=== PATIENT | female | born 1975 | race Caucasian/White ===

== ENCOUNTER 2017-02-13 03:23 | Emergency (ER) | payer OTHER ==
[~2017-02-13] VITALS: Ht 160 cm; Wt 82.7 kg
[~2017-02-13 03:23] MED LIST: CETI10CA PO; CHOL3000 PO; DOCO100C PO; DOCU-131 PO; FERR324T8 PO; FOLI0.8C PO; IBUP-1222 PO; MAGN400T7 PO; MULT-257 PO; TRAM-47 PO
[2017-02-13] MEDS ORDERED: DEXAMETHASONE 4 MG/ML, 1ML PO ONE (04:00)
[2017-02-13] MEDS ORDERED: BICILLIN-LA 1,200,000 UNITS/2 ML IM ONE (04:00)
[2017-02-13] MEDS ORDERED: DEXAMETHASONE 4 MG/ML, 1ML ONE (04:01)
[2017-02-13 04:38] VITALS: BP 120/71
== END 2017-02-13 04:40 | disposition home or self-care (01) ==
LOC: ED 04:34
DX: J02.0 Streptococcal pharyngitis (principal)
CPT/HCPCS: 96372; 99283; J0561; J1100

== ENCOUNTER 2017-09-12 16:43 | Observation (INO) | payer OTHER ==
[~2017-09-12] VITALS: Ht 160 cm; Wt 90.0 kg
[2017-09-12 17:02] VITALS: BP 129/62
[2017-09-12 17:12] LABS: BASOPHILS # (AUTO) 0.15 x10^3/uL (0-0.1); BASOPHILS % (AUTO) 1 % (0-1); EOSINOPHILS # (AUTO) 0.18 x10^3/uL (0-0.4); EOSINOPHILS % (AUTO) 2 % (1-7); LYMPHOCYTES # (AUTO) 2.39 x10^3/uL (1-3.4); LYMPHOCYTES % (AUTO) 20 % (22-44); MD NO; MEAN CORPUSCULAR HEMOGLOBIN 29.5 pg (27.0-34.8); MEAN CORPUSCULAR HGB CONC 33.3 g/dL (32.4-35.8); MEAN CORPUSCULAR VOLUME 88.8 fL (80-100); MEAN PLATELET VOLUME 8.9 fL (7.4-10.4); MONOCYTES # (AUTO) 0.77 x10^3/uL (0.2-0.8); MONOCYTES % (AUTO) 6 % (2-9); NEUTROPHILS # (AUTO) 8.75 x10^3/uL (1.8-6.8); NEUTROPHILS % (AUTO) 72 % (42-75); PLATELET COUNT 300 x10^3/uL (130-400); RED BLOOD COUNT 3.99 x10^6/uL (3.82-5.3); RED CELL DISTRIBUTION WIDTH 13.5 % (9.6-15.2)
[2017-09-12 17:23] LABS: ALANINE AMINOTRANSFERASE 15 U/L (12-78); ALBUMIN 2.9 g/dL (3.4-5.0); ANION GAP 8 mmol/L (5-15); CALCIUM 9.2 mg/dL (8.5-10.1); CHLORIDE 108 mmol/L (98-107); CREATININE 0.82 mg/dL (0.55-1.02)
[2017-09-12 17:25] LABS: ALKALINE PHOSPHATASE 80 U/L (45-117); BILIRUBIN, DIRECT < 0.1 mg/dL (0.1-0.2); BILIRUBIN,TOTAL 0.1 mg/dL (0.2-1.0); TOTAL PROTEIN 7.3 g/dL (6.4-8.2)
[2017-09-12 17:36] LABS: MICROSCOPIC AUTO
[2017-09-12 17:46] LABS: CREATININE,URINE RANDOM 95.3 mg/dL
[2017-09-12] MEDS ORDERED: BETAMETHASONE 6 MG/ML, 5ML IM ONE ×2 (19:22→19:30)
== END 2017-09-12 19:40 | disposition home or self-care (01) ==
LOC: LDOP 16:43 → LDIP 19:36
PROVIDERS: ADMIT Obstetrics & Gynecology Maternal & Fetal Medicine; ATTEND Obstetrics & Gynecology Maternal & Fetal Medicine
DX: O26.893 Other specified pregnancy related conditions, third trimester (principal); R03.0 Elevated blood-pressure reading, without diagnosis of hypertension; O36.8130 Decreased fetal movements, third trimester, not applicable or unspecified; Z3A.30 30 weeks gestation of pregnancy
CPT/HCPCS: 36415; 59025; 80053; 81001; 81050; 82248; 82570; 84156; 84550; 85025; 96372; G0378; J0702

== ENCOUNTER 2017-09-16 12:13 | Outpatient (CLI) | payer OTHER ==
[~2017-09-16] VITALS: Ht 161.3 cm; Wt 90.0 kg
[2017-09-16 12:17] VITALS: BP 128/81
== END 2017-09-16 16:35 | disposition home or self-care (01) ==
LOC: LDOP 12:13
PROVIDERS: ATTEND Obstetrics & Gynecology Maternal & Fetal Medicine
DX: O13.3 Gestational [pregnancy-induced] hypertension without significant proteinuria, third trimester (principal); O14.93 Unspecified pre-eclampsia, third trimester; Z3A.31 31 weeks gestation of pregnancy
CPT/HCPCS: 59025; 99211; G0463

== ENCOUNTER 2017-09-25 14:15 | Outpatient (CLI) | payer OTHER ==
[~2017-09-25] VITALS: Ht 161.3 cm; Wt 91.8 kg
[2017-09-25 19:06] VITALS: BP 131/75
== END 2017-09-25 16:30 | disposition home or self-care (01) ==
LOC: LDOP 14:15
PROVIDERS: ATTEND Obstetrics & Gynecology Maternal & Fetal Medicine
DX: O36.8130 Decreased fetal movements, third trimester, not applicable or unspecified (principal); O14.93 Unspecified pre-eclampsia, third trimester; Z3A.30 30 weeks gestation of pregnancy
CPT/HCPCS: 59025; 76819; 99211; G0463

== ENCOUNTER → 2017-10-08 | Outpatient (CLI) | payer OTHER ==
[2017-10-08 15:21] LABS: BASOPHILS # (AUTO) 0.05 x10^3/uL (0-0.1); BASOPHILS % (AUTO) 1 % (0-1); EOSINOPHILS # (AUTO) 0.17 x10^3/uL (0-0.4); EOSINOPHILS % (AUTO) 2 % (1-7); LYMPHOCYTES # (AUTO) 3.27 x10^3/uL (1-3.4); LYMPHOCYTES % (AUTO) 28 % (22-44); MD NO; MEAN CORPUSCULAR HEMOGLOBIN 29.8 pg (27.0-34.8); MEAN CORPUSCULAR HGB CONC 33.3 g/dL (32.4-35.8); MEAN CORPUSCULAR VOLUME 89.4 fL (80-100); MEAN PLATELET VOLUME 8.6 fL (7.4-10.4); MONOCYTES # (AUTO) 0.59 x10^3/uL (0.2-0.8); MONOCYTES % (AUTO) 5 % (2-9); NEUTROPHILS # (AUTO) 7.56 x10^3/uL (1.8-6.8); NEUTROPHILS % (AUTO) 65 % (42-75); PLATELET COUNT 306 x10^3/uL (130-400); RED BLOOD COUNT 4.35 x10^6/uL (3.82-5.3); RED CELL DISTRIBUTION WIDTH 14.2 % (9.6-15.2)
[2017-10-08 15:34] LABS: ALBUMIN 2.9 g/dL (3.4-5.0); ANION GAP 6 mmol/L (5-15); CALCIUM 9.2 mg/dL (8.5-10.1); CHLORIDE 107 mmol/L (98-107)
[2017-10-08 15:35] LABS: ALANINE AMINOTRANSFERASE 18 U/L (12-78); CREATININE 0.86 mg/dL (0.55-1.02)
[2017-10-08 15:37] LABS: ALKALINE PHOSPHATASE 110 U/L (45-117); BILIRUBIN,TOTAL 0.2 mg/dL (0.2-1.0); TOTAL PROTEIN 7.5 g/dL (6.4-8.2)
== END | disposition home or self-care (01) ==
LOC: LAB 15:04
PROVIDERS: ATTEND Nurse Practitioner
DX: O13.9 Gestational [pregnancy-induced] hypertension without significant proteinuria, unspecified trimester (principal); O14.90 Unspecified pre-eclampsia, unspecified trimester; R80.9 Proteinuria, unspecified; Z3A.00 Weeks of gestation of pregnancy not specified
CPT/HCPCS: 36415; 80053; 81050; 84156; 84550; 85025

== ENCOUNTER 2019-07-15 10:04 | Emergency (ER) | payer OTHER ==
[~2019-07-15] VITALS: Ht 160 cm; Wt 83.1 kg
[~2019-07-15 10:04] MED LIST changes: -MAGN400T7 PO; +MAGN400T9 PO
[2019-07-15 10:08] VITALS: BP 114/69
[2019-07-15 10:58] LABS: BASOPHILS # (AUTO) 0.05 x10^3/uL (0-0.1); BASOPHILS % (AUTO) 1 % (0-1); EOSINOPHILS % (AUTO) 5 % (1-7); LYMPHOCYTES # (AUTO) 1.52 x10^3/uL (1-3.4); LYMPHOCYTES % (AUTO) 25 % (22-44); MD NO; MEAN CORPUSCULAR HGB CONC 32.7 g/dL (32.4-35.8); MEAN CORPUSCULAR VOLUME 91.8 fL (80-100); MONOCYTES # (AUTO) 0.34 x10^3/uL (0.2-0.8); MONOCYTES % (AUTO) 6 % (2-9); NEUTROPHILS % (AUTO) 64 % (42-75); PLATELET COUNT 274 x10^3/uL (130-400); RED BLOOD COUNT 4.54 x10^6/uL (3.82-5.3); RED CELL DISTRIBUTION WIDTH 12.9 % (9.6-15.2)
[2019-07-15 11:11] LABS: ALANINE AMINOTRANSFERASE 26 U/L (12-78); ANION GAP 6 mmol/L (5-15); CALCIUM 9.3 mg/dL (8.5-10.1); CHLORIDE 106 mmol/L (98-107); CREATININE 1.04 mg/dL (0.55-1.02)
[2019-07-15 11:16] LABS: ALKALINE PHOSPHATASE 49 U/L (45-117); BILIRUBIN,TOTAL 0.5 mg/dL (0.2-1.0); TOTAL PROTEIN 7.8 g/dL (6.4-8.2); TROPONIN I < 0.015 ng/mL (0.000-0.045)
== END 2019-07-15 12:16 ==
LOC: ED 11:11
DX: R07.89 Other chest pain (principal)
CPT/HCPCS: 36415; 71045; 80053; 83690; 84484; 85025; 93005; 99285

== ENCOUNTER 2019-12-26 07:40 | Emergency (ER) | payer OTHER ==
[~2019-12-26] VITALS: Ht 162.6 cm; Wt 79.5 kg
[2019-12-26 07:48] VITALS: BP 114/49
--- NOTE | 2019-12-26 08:16 | NUR ---
THIS IS A 44 YO F W/ C/O SORE THROAT, BOADY ACHES AND CHILLS SINCE LAST NIGHT. PT REPORTS SPOUSE AT HOME ALSO FEELING ILL. NO KNOWN POSITIVE EXPOSURES. PT RESTING ON [facility] W/ CALL LIGHT IN REACH, RESP EVEN AND UNLABORED, NADN.
--- NOTE | 2019-12-26 09:10 | NUR ---
ALL TESTS RESULTED, PT IS UP FOR RECHECK AT THIS TIME.
--- NOTE | 2019-12-26 10:14 | NUR ---
PT LEFT PRIOR TO RECEIVING DC [facility]. SUZANNE.
== END 2019-12-26 10:16 | disposition home or self-care (01) ==
LOC: ED 08:40
DX: U07.1 COVID-19 (principal); J02.8 Acute pharyngitis due to other specified organisms; R51.9 Headache, unspecified; M79.10 Myalgia, unspecified site
CPT/HCPCS: 87635; 99283